=== PATIENT | male | born 2000 | race Caucasian/White ===

== ENCOUNTER 2025-03-01 07:31 | Day surgery (SDC) | payer OTHER ==
[~2025-03-01] VITALS: Ht 175.3 cm; Wt 73.6 kg
[~2025-03-01 07:31] MED LIST: IBUP-354 PO
[2025-03-01] MEDS ORDERED: ACETAMINOPHEN 1000MG/100ML IV BAG As Ordered ONE (07:54)
[2025-03-01] MEDS ORDERED: LR 1,000 ML IV SCH (07:55)
[2025-03-01] MEDS ORDERED: dexAMETHasone 4 MG/ML 1 ML VIAL As Ordered ONE (07:57)
[2025-03-01] MEDS ORDERED: LIDOCAINE 2% 100 MG/5 ML SDV (FOR ANES.) As Ordered ONE (07:57)
[2025-03-01] MEDS ORDERED: ONDANSETRON 4MG 2ML VIAL As Ordered ONE (07:57)
[2025-03-01] MEDS ORDERED: SUGAMMADEX SODIUM 500 MG/5 ML VIAL As Ordered ONE (07:57)
[2025-03-01] MEDS ORDERED: ROCURONIUM BROMIDE 50MG/5ML VIAL As Ordered ONE (07:57)
[2025-03-01] MEDS: MIDAZOLAM INJ 2 MG/2 ML VIAL IV PRN (09:06)
[2025-03-01] MEDS: ROPIvacaine 0.5% 30ML VIAL PN ONE (09:10)
[2025-03-01] MEDS: dexAMETHasone 10 MG/1 ML VIAL PRES.FREE PN ONE (09:10)
[2025-03-01] MEDS: LIDOCAINE 1% SDV 5 ML VIAL PN ONE (09:10)
[2025-03-01] MEDS: ceFAZolin SOD 2 GM IV ONCE IV ONE (11:10)
[2025-03-01] MEDS: TRANEXAMIC ACID 100 MG/ML 10ML VIAL IV ONE (11:15)
[2025-03-01] MEDS: EPINEPHrine 1 MG/ML INJ 30 ML MD-VIAL As Ordered ONE (11:31)
[2025-03-01] MEDS: LIDOCAINE 1% SDV 30 ML VIAL As Ordered ONE (12:22)
[2025-03-01] MEDS: VANCOMYCIN 1000MG/20ML VIAL As Ordered ONE (12:24)
[2025-03-01] MEDS: TRANEXAMIC ACID 100 MG/ML 10ML VIAL As Ordered ONE (12:31)
[2025-03-01] MEDS ORDERED: MORPHINE 4 MG/ML 1 ML VIAL IV PRN (13:00)
[2025-03-01] MEDS: ONDANSETRON 4MG 2ML VIAL IV PRN (13:34)
[2025-03-01 15:03] VITALS: BP 118/73; TEMP 96.5; O2SAT 100
== END 2025-03-01 15:05 | disposition home or self-care (01) ==
LOC: M SDC 07:31
PROVIDERS: ATTEND Orthopaedic Surgery
DX: S43.431A Superior glenoid labrum lesion of right shoulder, initial encounter (principal); X58.XXXA Exposure to other specified factors, initial encounter; Y93.89 Activity, other specified; Y92.9 Unspecified place or not applicable
CPT/HCPCS: 29806; C1713; J0131; J0165; J0688; J1100; J2250; J2405; J2795; J3010